=== PATIENT | female | born 1950 ===

== ENCOUNTER 2018-07-27 21:53 | Observation (INO) | payer SELFPAY ==
[2018-07-27 22:05] VITALS: RESP 18; TEMP 98.8
--- NOTE | 2018-07-27 22:52 | ED PDOC ---
HPI: Chest Pain Time Seen by Provider: 07/27/18 22:05 Chief Complaint (Nursing): Chest Pain History Per: Patient, Family Onset/Duration Of Symptoms: Hrs Current Symptoms Are (Timing): Still Present Additional Complaint(s): Hx of HTN, CAD?, valvular disease, pulmonary hypertension presenting with progressively worsening shortness of breath and chest pain. Family states that she was in [facility] two weeks ago and was started on Benicar and since then has been getting worsening of her breathing, exertional dypsnea, and orthopnea. Also complaining of "Reflux" with throat pain as well. No cough, fever. PMD: None Past Medical History Reviewed: Historical Data, Nursing Documentation, Vital Signs Vital Signs: Last Vital Signs Temp 98.8 F 07/27/18 22:04 Pulse 67 07/27/18 22:04 Resp 18 07/27/18 22:04 BP 156/76 H 07/27/18 22:04 Pulse Ox 100 07/27/18 22:04 - Family History Family History: States: No Known Family Hx - Home Medications Home Medications: Ambulatory Orders Medication Instructions Recorded Carvedilol [Coreg] 6.25 mg PO DAILY 07/28/18 Levothyroxine [Synthroid] 50 mcg PO DAILY 07/28/18 Olmesartan/Hydrochlorothiazide 1 tab PO DAILY 07/28/18 [Benicar Hct 40-25 mg Tablet] Patient Own Control 5 mg PO DAILY 07/28/18 - Allergies Allergies/Adverse Reactions: Allergies Allergy/AdvReac Type Severity Reaction Status Date / Time Penicillins Allergy RASH Verified 07/27/18 21:57 YARELIS Risk Score for UA/NSTEMI - YARELIS Risk Score Age > 64: YES YARELIS Score: 1 Risk %: 5% Review of Systems ROS Statement: Except As Marked, All Systems Reviewed And Found Negative Cardiovascular: Positive for: Chest Pain, Orthopnea Respiratory: Positive for: Shortness of Breath Physical Exam - Reviewed Nursing Documentation Reviewed: Yes Vital Signs Reviewed: Yes - Physical Exam Appears: Positive for: Well, Non-toxic, No Acute Distress Head Exam: Positive for: ATRAUMATIC, NORMAL INSPECTION, NORMOCEPHALIC Skin: Positive for: Normal Color, Warm, DRY Eye Exam: Positive for: EOMI, Normal appearance, PERRL ENT: Positive for: Normal ENT Inspection Neck: Positive for: Normal, Painless ROM Cardiovascular/Chest: Positive for: Regular Rate, Rhythm, Murmur (Holosytolic) Respiratory: Positive for: CNT, Normal Breath Sounds Gastrointestinal/Abdominal: Positive for: Normal Exam, Soft Back: Positive for: Normal Inspection Extremity: Positive for: Normal ROM Neurologic/Psych: Positive for: Alert, Oriented - Laboratory Results Result Diagrams: 07/27/18 22:47 07/27/18 22:47 - ECG ECG Rhythm: Positive for: Normal QRS, Normal ST Segment, Sinus Rhythm Rate: 70 O2 Sat by Pulse Oximetry: 100 Medical Decision Making Medical Decision MakinPM Patient presenting with chest pain, worsening shortness of breath --Symptoms could be secondary to worsening valvular disease, failure, ACS --Will get labs, CXR, EKG --Currently well appearing, stable vitals 0030 --CXR shows bilateral blunting of CPA --Trop negative, EKG NSR --Given risk factors, will admit for continous cardiac monitoring, serial troponins, and possibly echo in AM to establish extent of valvluar disease --Dr. Hoang aware Disposition - Clinical Impression Clinical Impression: Chest pain - Disposition Disposition Time: 01:00 Condition: FAIR
[2018-07-27 22:57] LABS: BASO # 0.1 K/uL (0.0-0.2); BASO % 0.9 % (0.0-2.0); EOS # 0.1 K/uL (0.0-0.7); EOS % 1.6 % (0.0-4.0); HEMOGLOBIN 12.5 g/dL (12.0-16.0); LYMPH # 1.9 K/uL (1.0-4.3); LYMPH % 27.7 % (20.0-40.0); MEAN CELL VOLUME 89.2 fl (81.0-99.0); MEAN CORPUSCULAR HGB CONC 33.6 g/dL (33.0-37.0); MEAN PLATELET VOLUME 7.6 fl (7.2-11.7); MONO # 0.8 K/uL (0.0-0.8); MONO % 11.7 % (0.0-10.0); NEUT # 4.1 K/uL (1.8-7.0); NEUT % 58.1 % (50.0-75.0); NRBC % 0.1 % (0.0-0.0); RBC 4.16 Mil/uL (3.80-5.20); RED CELL DISTRIBUTION WIDTH 12.9 % (11.5-14.5)
[2018-07-27 23:00] LABS: INR 1.1; PROTHROMBIN TIME 12.2 Seconds (9.8-13.1)
[2018-07-27 23:03] LABS: PARTIAL THROMBOPLASTIN TIME 32.9 Seconds (25.6-37.1)
[2018-07-27 23:06] LABS: BLOOD UREA NITROGEN 11 mg/dl (7-17); CALCIUM 9.1 mg/dL (8.4-10.2); GFR NON-AFRICAN AMERICAN > 60
[2018-07-27 23:18] LABS: B-TYPE NATRIURETIC PEPTIDE 122 pg/ml (0-900)
[2018-07-28] MEDS ORDERED: Alum-Mag Hydrox-Simethicone Susp (30 mL) PO ONE (02:02)
--- NOTE | 2018-07-28 02:07 | CP.PCM.HP ---
<Mis Tang - Last Filed: 07/28/18 03:10> History of Present Illness - History of Present Illness History of Present Illness: CC: chest pain HPI: 67 YO female with PMHx of HTN, hypothyroidism, gastritis presents to [facility] ED for chest pain. Pt came to [facility] from [facility], visiting her son about 2 weeks ago. Chest pain started about 1 week ago, on/off, episodic pain that is described as burning in nature in the mediastinum with radiation to her back, throat and mouth. At times there is back pain as well with the pain. No association with activity, no diaphoresis, palpitations or dyspnea with pain. Radiation of the pain is worse when lying down at night, associated with dry cough and nausea. No association with foods, but pt has noticed that she is eating more then usual. Mild relief with nexium. Denies weight changes, dyspnea, palpitations, v/d/c, fevers or chills. Daphne [id number] Son Caleb by bedside with , phone # [phone] PMHx: HTN, hypothyroidism, gastritis SurgHx: endoscopy 4 yrs ago gastritis, Hysterectomy, cataract surgery R eye FHx: hx of hypothyroidism SHx: denies ETOH, smoking and illicit drug use Allergies: Penicillin-rash Present on Admission - Present on Admission Any Indicators Present on Admission: No Review of Systems - Constitutional Constitutional: absent: Anorexia, Chills, Headache Past Patient History - Past Social History Smoking Status: Never Smoked Alcohol: None Drugs: Denies Home Situation {Lives}: With Family - CARDIAC Hx Cardiac Disorders: Yes Hx Hypertension: Yes - ENDOCRINE/METABOLIC Hx Endocrine Disorders: Yes Hx Hypothyroidism: Yes - GASTROINTESTINAL Hx Gastrointestinal Disorders: Yes Hx Gastritis: Yes - PSYCHIATRIC Hx Substance Use: No Meds Allergies/Adverse Reactions: Allergies Allergy/AdvReac Type Severity Reaction Status Date / Time Penicillins Allergy RASH Verified 07/27/18 21:57 Physical Exam - Constitutional Appears: No Acute Distress - Head Exam Head Exam: NORMAL INSPECTION, NORMOCEPHALIC - Eye Exam Eye Exam: Normal appearance Additional comments: cataract surgery R eye - ENT Exam ENT Exam: Mucous Membranes Dry - Respiratory Exam Respiratory Exam: Clear to Auscultation Bilateral, NORMAL BREATHING PATTERN. absent: Chest Wall Tenderness, Wheezes - Cardiovascular Exam Cardiovascular Exam: REGULAR RHYTHM, +S1, +S2, Systolic Murmur - GI/Abdominal Exam GI & Abdominal Exam: Normal Bowel Sounds, Soft, Tenderness (epigastria ). absent: Distended, Guarding, Rebound - Extremities Exam Extremities exam: Positive for: normal inspection. Negative for: calf tenderness, pedal edema - Back Exam Back exam: NORMAL INSPECTION - Neurological Exam Neurological exam: Alert, Oriented x3 - Skin Skin Exam: Normal Color Results - Vital Signs Recent Vital Signs: Last Vital Signs Temp 98.8 F 07/27/18 22:04 Pulse 70 07/27/18 22:55 Resp 18 07/27/18 22:04 BP 156/76 H 07/27/18 22:04 Pulse Ox 100 07/27/18 22:55 - Labs Result Diagrams: 07/27/18 22:47 07/27/18 22:47 Labs: Laboratory Results - last 24 hr 07/27/18 07/27/18 07/27/18 22:47 22:47 22:47 WBC 7.0 RBC 4.16 Hgb 12.5 Hct 37.1 MCV 89.2 MCH 30.0 MCHC 33.6 RDW 12.9 Plt Count 204 MPV 7.6 Neut % (Auto) 58.1 Lymph % (Auto) 27.7 Josephine % (Auto) 11.7 H Eos % (Auto) 1.6 Baso % (Auto) 0.9 Neut # (Auto) 4.1 Lymph # (Auto) 1.9 Josephine # (Auto) 0.8 Eos # (Auto) 0.1 Baso # (Auto) 0.1 PT 12.2 INR 1.1 APTT 32.9 Sodium 124 L Potassium 3.9 Chloride 87 L Carbon Dioxide 25 Anion Gap 16 BUN 11 Creatinine 0.4 L Est GFR ( Amer) > 60 Est GFR (Non-Af Amer) > 60 Random Glucose 101 Calcium 9.1 Troponin I < 0.0120 NT-Pro-B Natriuret Pep 122 Assessment & Plan - Assessment and Plan (Free Text) Assessment: Assessment/Plan: 67 YO female with PMHx of HTN, hypothyroidism, gastritis is admitted for chest pain, r/o ACS. Chest pain -likely GERD, less likely cardiac in nature given symptoms -EKG no acute ST or T wave changed noted -Echo from [facility] 2018: normal LV function EF 56%, moderate mitral insufficiency and pulmonary HTN. -Trop x 1 neg -CXR no acute findings -pepsid PO, zofran, Tylenol for pain -f/u Trop q6 x 2 -rpt EKG in AM Hyponatremia, Hypochloremia -Na 124, serum osmolarity 258, Na deficit 455.6meq -likely 2/2 to decrease PO intake -will start IVF, NS @ 100mls/hr, NaCl tabs PO -consider hypertonic Na based on labs -f/w urine osmolarity and urine Na -repeat labs in AM HTN -chronic, controlled -c/w home meds Hypothyroidism -Chronic, controlled -c/w home meds DVT prolx -Lovenox SC <Ben Hoang - Last Filed: 07/28/18 05:05> Results - Vital Signs Recent Vital Signs: Last Vital Signs Temp 98.8 F 07/27/18 22:04 Pulse 70 07/28/18 04:52 Resp 18 07/27/18 22:04 BP 156/76 H 07/27/18 22:04 Pulse Ox 100 07/28/18 04:52 - Labs Result Diagrams: 07/27/18 22:47 07/27/18 22:47 Labs: Laboratory Results - last 24 hr 07/27/18 07/27/18 07/27/18 22:47 22:47 22:47 WBC 7.0 RBC 4.16 Hgb 12.5 Hct 37.1 MCV 89.2 MCH 30.0 MCHC 33.6 RDW 12.9 Plt Count 204 MPV 7.6 Neut % (Auto) 58.1 Lymph % (Auto) 27.7 Josephine % (Auto) 11.7 H Eos % (Auto) 1.6 Baso % (Auto) 0.9 Neut # (Auto) 4.1 Lymph # (Auto) 1.9 Josephine # (Auto) 0.8 Eos # (Auto) 0.1 Baso # (Auto) 0.1 PT 12.2 INR 1.1 APTT 32.9 Sodium 124 L Potassium 3.9 Chloride 87 L Carbon Dioxide 25 Anion Gap 16 BUN 11 Creatinine 0.4 L Est GFR ( Amer) > 60 Est GFR (Non-Af Amer) > 60 Random Glucose 101 Calcium 9.1 Troponin I < 0.0120 NT-Pro-B Natriuret Pep 122 Attending/Attestation - Attestation I have personally seen and examined this patient.: Yes I have fully participated in the care of the patient.: Yes I have reviewed all pertinent clinical information: Yes Notes (Text): 07/28/18 04:55 I saw, examined and discussed this patient with Dr Tang. I agree with the assessment and plan above which represent my direct input. This 67 years old female has had this burning type of chest pain radiating to the back and is most disturbing when she lays down, causing some coughing and throat irritation. ECHO was done in [facility]. The pain appears to relate to GERD. We will treat GIRD with PPI and r/o ACS with serial Troponin and EKG. The hyponatremia will be treated with Normal saline Pending Serum and Urine Osmolatities, Urine electrolytes, Uric Acid and TSH. We will treat hypertension and Hold the Hydrochlorothiazide which could cause electrolyte imbalance. Ben Hoang MD
[2018-07-28] MEDS ORDERED: Sodium Chloride 0.9% 1,000 ML IV SCH (02:15)
[2018-07-28 06:02] VITALS: BP 143/73; PULSE 61; O2SAT 98
[2018-07-28 06:14] LABS: BLOOD UREA NITROGEN 8 mg/dl (7-17); CALCIUM 8.9 mg/dL (8.4-10.2); GFR NON-AFRICAN AMERICAN > 60; URIC ACID 2.1 mg/Dl (2.2-7.5)
[2018-07-28] MEDS ORDERED: Levothyroxine 50 MCG TAB PO SCH (06:30)
[2018-07-28 06:33] LABS: OSMOLALITY,URINE 204 mosm/kg (300-1000)
[2018-07-28] MEDS ORDERED: OLMESARTAN PO SCH (09:00)
[2018-07-28] MEDS ORDERED: HYDROCHLOROTHIAZIDE PO SCH (09:00)
[2018-07-28] MEDS ORDERED: Enoxaparin 40 mg Syringe SC SCH (09:00)
[2018-07-28] MEDS ORDERED: Pantoprazole 40 mg EC Tab PO SCH (09:00)
[2018-07-28 12:39] LABS: BLOOD UREA NITROGEN 7 mg/dl (7-17); CALCIUM 7.6 mg/dL (8.4-10.2); GFR NON-AFRICAN AMERICAN > 60
--- NOTE | 2018-07-28 13:48 | CP.PCM.DIS ---
Provider - Provider Date of Admission: 07/28/18 00:52 Attending physician: Ben Hoang Primary care physician: none Time Spent in preparation of Discharge (in minutes): 30 Diagnosis - Discharge Diagnosis (1) Chest pain Status: Resolved (2) Chronic GERD Status: Chronic Hospital Course - Lab Results Lab Results: Most Recent Lab Values WBC 7.0 K/uL (4.8-10.8) 07/27/18 22:47 RBC 4.16 Mil/uL (3.80-5.20) 07/27/18 22:47 Hgb 12.5 g/dL (12.0-16.0) 07/27/18 22:47 Hct 37.1 % (34.0-47.0) 07/27/18 22:47 MCV 89.2 fl (81.0-99.0) 07/27/18 22:47 MCH 30.0 pg (27.0-31.0) 07/27/18 22:47 MCHC 33.6 g/dL (33.0-37.0) 07/27/18 22:47 RDW 12.9 % (11.5-14.5) 07/27/18 22:47 Plt Count 204 K/uL (130-400) 07/27/18 22:47 MPV 7.6 fl (7.2-11.7) 07/27/18 22:47 Neut % (Auto) 58.1 % (50.0-75.0) 07/27/18 22:47 Lymph % (Auto) 27.7 % (20.0-40.0) 07/27/18 22:47 Wilcox % (Auto) 11.7 % (0.0-10.0) H 07/27/18 22:47 Eos % (Auto) 1.6 % (0.0-4.0) 07/27/18 22:47 Baso % (Auto) 0.9 % (0.0-2.0) 07/27/18 22:47 Neut # (Auto) 4.1 K/uL (1.8-7.0) 07/27/18 22:47 Lymph # (Auto) 1.9 K/uL (1.0-4.3) 07/27/18 22:47 Wilcox # (Auto) 0.8 K/uL (0.0-0.8) 07/27/18 22:47 Eos # (Auto) 0.1 K/uL (0.0-0.7) 07/27/18 22:47 Baso # (Auto) 0.1 K/uL (0.0-0.2) 07/27/18 22:47 PT 12.2 Seconds (9.8-13.1) 07/27/18 22:47 INR 1.1 07/27/18 22:47 APTT 32.9 Seconds (25.6-37.1) 07/27/18 22:47 Sodium 133 mmol/l (132-148) 07/28/18 12:14 Potassium 3.7 MMOL/L (3.6-5.0) 07/28/18 12:14 Chloride 102 mmol/L (98-107) 07/28/18 12:14 Carbon Dioxide 23 mmol/L (22-30) 07/28/18 12:14 Anion Gap 12 (10-20) 07/28/18 12:14 BUN 7 mg/dl (7-17) 07/28/18 12:14 Creatinine 0.3 mg/dl (0.7-1.2) L 07/28/18 12:14 Est GFR ( Amer) > 60 07/28/18 12:14 Est GFR (Non-Af Amer) > 60 07/28/18 12:14 Random Glucose 92 mg/dL (65-105) 07/28/18 12:14 Serum Osmolality 259 mosm/kg (272-300) L 07/28/18 05:40 Uric Acid 2.1 mg/Dl (2.2-7.5) L 07/28/18 05:40 Calcium 7.6 mg/dL (8.4-10.2) L 07/28/18 12:14 Troponin I < 0.0120 ng/mL (0.00-0.120) 07/28/18 12:14 NT-Pro-B Natriuret Pep 122 pg/ml (0-900) 07/27/18 22:47 TSH 3rd Generation 2.37 mIU/ML (0.46-4.68) 07/28/18 05:40 Urine Osmolality 204 mosm/kg (300-1000) L 07/28/18 05:54 Ur Random Sodium 54 mmol/L 07/28/18 05:54 - Hospital Course Hospital Course: 67 yo F with history of HTN, hypothyroidism, gastritis presented to ED and was admitted for obs for chest pain. Pt has long standing history of acid reflux. She does not have PMD as she is from [facility] and is visiting her son here. Pain started 1 week ago, on/off, episodic pain that is described as burning in nature in the mediastinum with radiation to her back, throat and mouth, worsened by laying down. She had no weight changes, dyspnea, palpitations, v/d/c, fevers or chills. EKG showed NSR. Bloodwork initially showed hyponatremia, and it was responsive to fluids, likely 2/2 to poor PO intake. Troponin neg x3. ACS r/o; pt more likely to be experiencing GERD symptoms. This morning, sitting up in bed, hemodynamically stable, able to tolerate breakfast. Stable for discharge, may follow up at [facility]. Prescription given for pantoprazole 40 mg BID. Discharge Exam - Head Exam Head Exam: ATRAUMATIC, NORMAL INSPECTION, NORMOCEPHALIC - Eye Exam Eye Exam: Normal appearance - ENT Exam ENT Exam: Mucous Membranes Moist - Respiratory Exam Respiratory Exam: Clear to PA & Lateral, NORMAL BREATHING PATTERN. absent: Wheezes, Respiratory Distress - Cardiovascular Exam Cardiovascular Exam: REGULAR RHYTHM, +S1, +S2 - GI/Abdominal Exam GI & Abdominal Exam: Normal Bowel Sounds, Soft - Extremities Exam Additional comments: no calf tenderness, no edema - Back Exam Back exam: NORMAL INSPECTION - Neurological Exam Neurological exam: Alert, Oriented x3 Discharge Plan - Discharge Medications Prescriptions: Pantoprazole [Protonix EC Tab] 40 mg PO BID #60 ect - Follow Up Plan Condition: FAIR Disposition: HOME/ ROUTINE Instructions: Acid Reflux (Gastroesophageal Reflux Disease), Adult (DC) Referrals: [facility] [Provider Group]
--- NOTE | 2018-07-28 16:45 | RAD ---
Date of service: 07/27/2018 HISTORY: chest pain, shortness of breath COMPARISON: No prior. TECHNIQUE: Chest PA and lateral FINDINGS: LUNGS: No active pulmonary disease. PLEURA: No significant pleural effusion identified. No pneumothorax apparent. CARDIOVASCULAR: Mild aortic atherosclerotic calcification present. Normal cardiac size. No pulmonary vascular congestion. OSSEOUS STRUCTURES: Mild multilevel degenerative spondylosis of the thoracic spine. VISUALIZED UPPER ABDOMEN: Normal. OTHER FINDINGS: None. IMPRESSION: No active disease.
--- NOTE | 2018-07-28 18:00 | CARD ---
APPROVED REPORT Date of service: 07/28/2018 EKG Measurement Heart [id number] <Conclusion> Normal sinus rhythm Normal ECG
--- NOTE | 2018-07-28 18:12 | CARD ---
APPROVED REPORT Date of service: 07/27/2018 EKG Measurement Heart [id number] <Conclusion> Normal sinus rhythm Normal ECG
== END 2018-07-28 13:36 | disposition home or self-care (01) ==
LOC: H.ER 21:53 → H.ERHOLD 07-28 00:52
PROVIDERS: ADMIT Internal Medicine; ATTEND Internal Medicine
DX: R07.89 Other chest pain (principal); K21.9 Gastro-esophageal reflux disease without esophagitis; E03.9 Hypothyroidism, unspecified; E87.1 Hypo-osmolality and hyponatremia; E87.8 Other disorders of electrolyte and fluid balance, not elsewhere classified; I10 Essential (primary) hypertension; Z88.0 Allergy status to penicillin; I27.20 Pulmonary hypertension, unspecified; E86.9 Volume depletion, unspecified; K29.70 Gastritis, unspecified, without bleeding
CPT/HCPCS: 71046; 80048; 83880; 83930; 83935; 84300; 84443; 84484; 84550; 85025; 85610; 85730; 93005; 96374; 99285; G0378; J7030